=== PATIENT | male | born 1995 | race African-American/Black ===

== ENCOUNTER 2022-10-13 04:35 | Emergency (ER) | payer OTHER ==
[~2022-10-13] VITALS: Ht 149.9 cm; Wt 54.4 kg
[2022-10-13 05:08] LABS: PLATELET COUNT 336 K/uL (142-355)
[2022-10-13 07:06] VITALS: TEMP 98.6
[2022-10-13 08:39] VITALS: BP 102/56
== END 2022-10-13 08:39 | disposition short-term general hospital (02) ==
LOC: ED 04:35
PROVIDERS: Family Medicine
PROC: 0T9B70Z Drainage of Bladder with Drainage Device, Via Natural or Artificial Opening (ICD-10-PCS; principal; 2022-10-13)
DX: S32.89XA Fracture of other parts of pelvis, initial encounter for closed fracture (principal); S32.592A Other specified fracture of left pubis, initial encounter for closed fracture; S51.012A Laceration without foreign body of left elbow, initial encounter; S50.311A Abrasion of right elbow, initial encounter; S70.212A Abrasion, left hip, initial encounter; S30.811A Abrasion of abdominal wall, initial encounter; S30.810A Abrasion of lower back and pelvis, initial encounter; S90.812A Abrasion, left foot, initial encounter; S90.811A Abrasion, right foot, initial encounter; S00.03XA Contusion of scalp, initial encounter; V03.90XA Pedestrian on foot injured in collision with car, pick-up truck or van, unspecified whether traffic or nontraffic accident, initial encounter; Y92.89 Other specified places as the place of occurrence of the external cause
CPT/HCPCS: 36415; 51702; 80053; 80307; 80320; 81002; 85027; 99285